=== PATIENT | female | born 1945 | race African-American/Black ===

== ENCOUNTER 2017-08-07 21:13 | Inpatient (IN) | payer OTHER ==
[~2017-08-07] VITALS: Ht 149.9 cm; Wt 53.3 kg
[2017-08-07 22:32] LABS: HEMATOCRIT 35.6 % (36.0-46.0); HEMOGLOBIN 12.3 G/DL (11.9-15.5); MCH 31.5 PG (29.0-34.0); MCHC 34.6 G/DL (30.0-36.0); PLATELET COUNT 146 K/uL (156-360); RBC DIS.WIDTH-CV 12.1 % (11.8-14.6); RBC DIS.WIDTH-SD 40.3 % (39-53); RED BLOOD COUNT 3.91 M/uL (3.80-5.20); WHITE BLOOD COUNT 8.9 K/uL (4.1-10.2)
[2017-08-07 22:53] LABS: ALBUMIN 3.8 g/dL (3.2-4.8); CHLORIDE 96 mEq/L (99-109); SODIUM 135 mEq/L (136-147)
[2017-08-07 22:54] LABS: TROP-I INTERPRETATION NEGATIVE; TROPONIN-I < 0.01 ng/mL (0.0-0.30)
[2017-08-07 22:55] LABS: GLUCOSE 336 mg/dL (70-99)
[2017-08-07 22:56] LABS: TOTAL PROTEIN 6.6 g/dL (6.4-8.3)
[2017-08-07 22:57] LABS: TOTAL BILIRUBIN 1.3 mg/dL (0.0-1.0)
[2017-08-07 22:59] LABS: ALKALINE PHOSPHATASE 72 IU/L (3-129); CREATININE 0.8 mg/dL (0.6-1.3); GFR ESTIMATE (CALCULATED) > 59 mL/min/
[2017-08-07 23:00] LABS: APPEARANCE CLOUDY ((CLEAR)); BILIRUBIN NEGATIVE; BLOOD SMALL; COLOR AMBER ((YELLOW)); GLUCOSE (STRIP) >=500; KETONES 80; LEUKOCYTES LARGE; NITRITE NEGATIVE; PROTEIN (STRIP) 100; SPECIFIC GRAVITY 1.025 (1.000-1.030)
[2017-08-07 23:00] LABS: UREA NITROGEN (BUN) 16 mg/dL (9-23)
[2017-08-07 23:01] LABS: AST (GOT) 17 IU/L (2-34)
[2017-08-07 23:02] LABS: ALT (GPT) 12 IU/L (3-49)
[2017-08-07 23:13] LABS: ABS NEUTROPHIL COUNT 7.9; ANISOCYTOSIS 1+; ATYPICAL LYMPHOCYTE 2.7 %; BAND NEUTROPHILS 19.1 % (0-8.0); EOSINOPHIL ABS CT 0; LYMPHOCYTES 2.7 % (15.0-45.0); METAMYELOCYTES 0.9 %; MICROCYTOSIS 1+; MONOCYTES 4.6 % (0-9.0); PLAT.SUFFICIENCY DECREASED; POIKILOCYTOSIS 1+
[2017-08-07 23:17] LABS: WHITE BLOOD CELLS TNTC /HPF (0-5)
[2017-08-07 23:18] LABS: EPITHELIAL CELLS RARE /HPF
[2017-08-07 23:20] LABS: BACTERIA RARE /HPF; MUCUS NONE SEEN /LPF; UCUL ADDED? YES
[2017-08-08] MEDS ORDERED: VANTIN200 MG PO (00:55)
[2017-08-08 05:53] VITALS: BP 101/62
[2017-08-08] MEDS ORDERED: HYDROCHLOROTHIA25 MG PO (06:15)
[2017-08-08] MEDS ORDERED: LOPRESSOR25 MG PO (06:16)
[2017-08-08] MEDS ORDERED: METFORMIN HCL1000 MG PO (06:16)
[2017-08-08] MEDS ORDERED: TRADJENTA5 MG PO (06:17)
[2017-08-08 07:32] VITALS: BP 104/63
[2017-08-08 15:22] VITALS: BP 156/79
[2017-08-08 19:17] VITALS: BP 109/61
[2017-08-09] VITALS (7 sets, daily range): BP systolic 107–173; BP diastolic 71–82
[2017-08-09 06:14] LABS: HEMOGLOBIN 11.6 G/DL (11.9-15.5); MCH 31.3 PG (29.0-34.0); MCHC 34.1 G/DL (30.0-36.0); MCV 91.6 FL (83-99); PLATELET COUNT 131 K/uL (156-360); RBC DIS.WIDTH-CV 12.3 % (11.8-14.6); RBC DIS.WIDTH-SD 41.3 % (39-53); RED BLOOD COUNT 3.71 M/uL (3.80-5.20); WHITE BLOOD COUNT 6.7 K/uL (4.1-10.2)
[2017-08-09 06:38] LABS: CHLORIDE 105 MEQ/L (99-109); CREATININE 0.6 MG/DL (0.6-1.3); GFR ESTIMATE (CALCULATED) > 59 mL/min/; POTASSIUM 3.8 MEQ/L (3.7-5.4); SODIUM 141 MEQ/L (136-147); UREA NITROGEN (BUN) 12 mg/dL (9-23)
[2017-08-09 06:49] LABS: GLUCOSE 74 mg/dL (70-99)
[2017-08-09] MEDS ORDERED: VITAMIN D31000 UNIT PO (12:46)
[2017-08-09] MEDS ORDERED: POLY-VITAMIN1 EACH PO (12:46)
[2017-08-10 06:05] LABS: HEMATOCRIT 31.4 % (36.0-46.0); MCH 31.2 PG (29.0-34.0); PLATELET COUNT 142 K/uL (156-360); RBC DIS.WIDTH-CV 12.2 % (11.8-14.6); RBC DIS.WIDTH-SD 39.6 % (39-53); RED BLOOD COUNT 3.53 M/uL (3.80-5.20); WHITE BLOOD COUNT 7.1 K/uL (4.1-10.2)
[2017-08-10 06:20] LABS: CREATININE 0.5 MG/DL (0.6-1.3); GFR ESTIMATE (CALCULATED) > 59 mL/min/; UREA NITROGEN (BUN) 10 mg/dL (9-23)
[2017-08-10 06:49] LABS: ANISOCYTOSIS 1+; ATYPICAL LYMPHOCYTE 6.9 %; BAND NEUTROPHILS 14.8 % (0-8.0); EOSINOPHIL ABS CT 0.1; EOSINOPHILS 0.9 % (0-5.0); LYMPHOCYTES 3.5 % (15.0-45.0); METAMYELOCYTES 0.9 %; MICROCYTOSIS 1+; MONOCYTES 1.7 % (0-9.0); MYELOCYTES 1.7 %; PLAT.SUFFICIENCY DECREASED; SEG.NEUTROPHILS 69.6 % (46.0-76.0)
[2017-08-10 07:41] VITALS: BP 150/72
[2017-08-10 16:24] VITALS: BP 159/73
[2017-08-10 22:33] VITALS: BP 146/78
[2017-08-11 00:08] VITALS: BP 146/73
[2017-08-11 07:10] VITALS: BP 118/59
[2017-08-11] MEDS ORDERED: INVANZ1 GM IM (14:32)
[2017-08-11] MEDS ORDERED: TYLENOL REGULA325 MG PO (14:35)
[2017-08-11 15:00] VITALS: BP 125/64
== END 2017-08-11 15:39 | disposition home or self-care (01) | DRG 690 ==
LOC: EME 21:13 → 5SOUTH 08-08 03:41 → EDOF 08-08 03:41 → ENRESERV 08-08 03:42 → 5SOUTH 08-08 05:37
PROVIDERS: Emergency Medicine; Hospitalist; Physician Assistant
DX: N12 Tubulo-interstitial nephritis, not specified as acute or chronic (principal); R78.81 Bacteremia; B96.20 Unspecified Escherichia coli [E. coli] as the cause of diseases classified elsewhere; Z16.12 Extended spectrum beta lactamase (ESBL) resistance; E11.65 Type 2 diabetes mellitus with hyperglycemia; I10 Essential (primary) hypertension; Z88.0 Allergy status to penicillin
CPT/HCPCS: 70450; 71046; 74177; 80048; 80053; 81003; 82565; 82948; 83605; 84484; 84520; 85025; 85027; 87040; 87077; 87086; 87186; 87801; 93005; 99281; 99285; J0696; J1335; J1644; J1815; J1885; J7030; J7050